=== PATIENT | female | born 1965 | race Caucasian/White ===

== ENCOUNTER → 2021-09-02 09:29 | Outpatient (CLI) | payer SELFPAY, OTHER ==
--- NOTE | 2021-09-02 09:31 | BI_ITS ---
MAMMOGRAPHY - BILATERAL SCREENING REASON FOR EXAM: Female, 56 years old. Routine annual screening examination. PERTINENT HISTORY: Aunt with breast cancer. TECHNIQUE: Digital bilateral breast alanna (3D mammographic acquisition) in the CC and MLO projections. 2-D mediolateral oblique (MLO) and craniocaudad (CC) views of both breasts were obtained. CAD: Full Field Digital Mammography with Computer Added Detection was performed. COMPARISON: No comparison mammograms available at this time. If any prior films become available, an addendum to this report can be generated. FINDINGS: Breast Composition: There are scattered areas of fibroglandular density. There is a 2.4 cm x 2.5 cm mass with calcifications in the deep central slightly lateral aspect of the right breast. Correlation with ultrasound is recommended for further evaluation. No other significant abnormalities are identified. BI/SCRN MAMM (CAD)W/ALNANA BILAT IMPRESSION: 2.4 cm x 2.5 cm soft tissue mass with calcifications in the deep central slightly lateral aspect of the right breast. Correlation with ultrasound is recommended. ASSESSMENT CATEGORY: BIRADS Category 0: Incomplete. Need additional imaging evaluation. A letter regarding these results will be sent to the patient by the facility within 30 days. Approximately 10% of breast cancers are not detected by mammography. A normal mammogram should not delay biopsy of a clinically suspicious abnormality. [id number] Electronically Signed: Sudhir Schneider MD at 10:30 EST , Service support ,
--- NOTE | 2021-09-02 10:33 | US_ITS ---
STUDY: ULTRASOUND BREAST - RIGHT REASON FOR EXAM: Female, 56 years old. Abnormal screening mammogram. TECHNIQUE: Axial and longitudinal images of the RIGHT breast were performed with a high resolution ultrasound transducer. # OF IMAGES: 87 COMPARISON: Comparison is made with prior mammogram done earlier in the morning. FINDINGS: RIGHT Breast: The mammographic abnormality corresponds to a 2.7 cm x 2.5 cm x 1.3 cm complex solid and cystic mass at the 8 o''clock position breast 5 cm from nipple. Calcifications are seen within. Biopsy is recommended. US/Breast Limited Unilateral IMPRESSION: 2.7 cm x 2.5 cm x 1.3 cm complex solid and cystic mass at the 8 o''clock position of the breast at 5 cm from the nipple. Biopsy recommended. ASSESSMENT CATEGORY: BIRADS Category 5: Highly Suggestive of Malignancy - Appropriate Action Should Be Taken. A letter regarding these results will be sent to the patient by the facility within 30 days. Electronically Signed: Sudhir Schneider MD at 12:12 EST , Service support ,
== END ==
PROVIDERS: PCP Family Medicine; Referring Provider Obstetrics & Gynecology; Visit Provider Obstetrics & Gynecology
DX: Z12.31 Encounter for screening mammogram for malignant neoplasm of breast (principal); N60.01 Solitary cyst of right breast
CPT/HCPCS: 76642; 77063; 77067

== ENCOUNTER → 2021-09-09 | Outpatient (CLI) | payer OTHER, SELFPAY ==
--- NOTE | 2021-09-08 | BRBX_PTH ---
PATIENT: JASON SALOMON LOC: [facility] U#:[id number] AGE/SX: 56/F ROOM: RE09/09/[address]: Dr. Kurtis Rivera MD : 1965 BED: DIS: 09/09/2021 SPEC #: [id number] RECD: 09/09/21 07:25 STATUS: EMELY JANAE #: [id number] KHUSHBU: 09/08/21 00:[address]: Kurtis Rivera DEPT: SURGICAL PATHOLOGY RECD BY: Jabier Seth ENTERED: 09/09/21 09:25 SP TYPE: BREAST BX OTHR DR: Dr. Kristine Wilkins DO Tissues: Right breast, NOS Procedures: Surgery Specimen Level IV HEADER OPERATION: Ultrasound-guided needle core biopsy, right breast PRE-OP DIAGNOSIS: Abnormal mammogram right breast TISSUE SUBMITTED: Right breast biopsy ISCHEMIC TIME: 1 minute FIXATION TIME: 27.5 hours MICROSCOPIC DIAGNOSIS Right beast, ultrasound-guided needle core biopsy: Fibrocystic changes, adenosis and intraductal hyperplasia without atypia. Negative for malignancy. CONTRERAS 09/10/21 COMMENT Immunohistochemistry ([id number]) supports the above diagnosis. Correlation with clinical, radiologic findins and appropriate follow up are necessary. Case has been reviewed in consultation with Dr. Pace who concurs with the above diagnosis. IDC:AM MICROSCOPIC DESCRIPTION Slides are reviewed. GROSS DESCRIPTION Received in fixative is one container labeled with the patient's name and designated right breast biopsy. The specimen consists of multiple elongated fragments of mcdonald-yellow fibroadipose tissue that in aggregate measure 1 x 0.5 x 0.1 cm. The entire specimen is submitted in one cassette. / CONTRERAS:syd 09/09/2021 TC:5 CPT: 37188
--- NOTE | 2021-09-08 | IMM_PTH ---
PATIENT: JASON SALOMON LOC: [facility] U#:[id number] AGE/SX: 56/F ROOM: RE09/09/[address]: Dr. Kurtis Rivera MD : 1965 BED: DIS: 09/09/2021 SPEC #: [id number] RECD: 09/10/21 12:39 STATUS: EMELY REChuyita #: [id number] KHUSHBU: 09/08/21 00:[address]: Kurtis Rivera DEPT: IMMUNOHISTOCHEMISTRY RECD BY: Cristina Granados ENTERED: 09/10/21 12:40 SP TYPE: IMMUNO OTHR DR: Dr. Kristine Wilkins DO Tissues: Right breast, NOS Procedures: Calponin-1(initial) P40 (add) PHYSICIAN & INSTITUTION [place] [id number] SPECIMEN INFORMATION: Tissue Source: Right breast biopsy Clinical Info: Abnormal mammogram Specimen Number: [id number] CPT code: 89528, 93142 x1 METHODOLOGY: Deparaffinized sections of prefer/formalin-fixed tissue or PAP/DQ stained slides are incubated with monoclonal/polyclonal antibodies/oligonucleotide probes. Localization is made via biotin free immunoperoxidase method. Appropriate controls are performed and reacted as expected. Results on target cell population are indicated in the following table: RESULTS: ANTIBODY / CLONE RESULT P40 (BC28) positive Calponin-1 (GM251B) positive These tests were developed and their performance characteristics determined by [facility]. They may not have been cleared or approved by the U.S. Food and Drug Administration. The FDA has determined that such clearance or approval is not necessary. The above immunohistochemical/dualISH markers are ordered and reviewed by the Pathologist. INTERPRETATION: Right breast, ultrasound guided core biopsy: Negative for malignancy CONTRERAS:jostin 09/12/21
== END | disposition home or self-care (01) ==
PROVIDERS: PCP Family Medicine; Visit Provider Surgery
DX: R92.8 Other abnormal and inconclusive findings on diagnostic imaging of breast (principal)
CPT/HCPCS: 88305; 88341; 88342

== ENCOUNTER 2021-10-13 06:59 | Day surgery (SDC) | payer OTHER, SELFPAY ==
[2021-10-13] VITALS (8 sets, daily range): BP systolic 125–159; BP diastolic 72–91; PULSE 70–77; RESP 16–20; TEMP 36.1–36.7; O2SAT 93–99; BMI 34.0
--- NOTE | 2021-10-13 | BRBX_PTH ---
PATIENT: JASON SALOMON LOC: [facility] U#:[id number] AGE/SX: 56/F ROOM: RE10/13/[address]: Dr. Kurtis Rivera MD : 1965 BED: DIS: 10/13/2021 SPEC #: [id number] RECD: 10/13/21 10:06 STATUS: EMELY JANAE #: [id number] KHUSHBU: 10/13/21 00:[address]: Kurtis Rivera DEPT: SURGICAL PATHOLOGY RECD BY: Yasmine Reyes ENTERED: 10/13/21 10:41 SP TYPE: BREAST BX OTHR DR: MD Dr. Kristine Pedersen DO Tissues: Right breast, NOS Procedures: Surgery Specimen Level V HEADER OPERATION: Right stereotactic wire loc excisional biopsy PRE-OP DIAGNOSIS: Right breast mass TISSUE SUBMITTED: Right breast mass MICROSCOPIC DIAGNOSIS Right breast mass, lumpectomy with needle localization: Florid intraductal hyperplasia without atypia. Fibrocystic changes and adenosis. Focal microcalcifications. Changes consistent with previous biopsy site. Negative for malignancy. SJ:syd 10/16/2021 COMMENT Please make reference to previous specimen ([id number]) right breast, ultrasound-guided needle core biopsy with diagnosis of ?fibrocystic changes, adenosis and intraductal hyperplasia without atypia.? MICROSCOPIC DESCRIPTION Slides are reviewed. GROSS DESCRIPTION Received fresh for intraoperative consultation labeled with the patient's name is a specimen designated right breast mass. The specimen consists of a piece of fibroadipose tissue with needle localization measuring 8 x 4 x 2.5 cm. the specimen is oriented by sutures as follows: short stitch - superior, long stitch - lateral. The specimen is inked as follows: anterior - yellow, posterior - black, superior - blue, inferior - green, medial - red and lateral - orange. Serial sections reveal focal fibrous area close to the tip of needle. No obvious mass is identified. No definite fibrous area or mass is noted close to the medial margin. This information is conveyed to the surgeon intraoperatively. Sections of the rest of the specimen reveal mcdonald-yellow adipose cut surfaces mixed with fibrous areas. The fibrous area is also close to the posterior margin. The fibrous area measures 2 cm in greatest dimension. Adjunct Writing Instructor sections are?submitted in 12 cassettes as follows: 1 - perpendicular superior, inferior and lateral margins, 2??perpendicular medial and anterior margins, 3 - fibrous area with closest posterior margin, 4-10 - fibrous area with adjacent area (fibrous area is submitted in entirety), 11 & 12 - Adjunct Writing Instructor sections from rest of the area. Sections will be submitted after additional fixation. / CONTRERAS:syd 10/14/21 TC:5 CPT: 23921, 95391
--- NOTE | 2021-10-13 06:58 | BI_ITS ---
SURGICAL BREAST SPECIMEN RADIOGRAPH CLINICAL: Document presence of calcifications in biopsy specimen. FINDINGS: Specimen shows presence of calcifications. Pathology is pending and an addendum to the biopsy report will be performed after the final pathologic diagnosis is rendered. Electronically Signed: Darrel Mcguire MD at 13:53 EST Tel , Service support , BI/Breast Biopsy Specimen
[2021-10-13] MEDS: Lactated Ringers 1,000 ML 15 ML IV ×2 (07:36→10:53)
--- NOTE | 2021-10-13 08:48 | HP.PCM_ITS ---
History and Physical Date of Admission: 10/13/21 Date of Service: 09/24/21 MR#:[id number]:[id number]: JASON SALOMON #:[id number]:1965 Provider:Dr. Kurtis Rivera MDAge/Sex: 56/F [facility] Vital Signs 09/24/21 08:44 Height 5 ft Weight: 175 lb 4 oz BMI 34.2 BP 159/84 H Blood Pressure Location Rt brachial Position Sitting Respiration 17 Pulse 73 Pulse Source Monitor Temp 97.6 F L Temp Source Temporal Pulse Oximetry (%) 96 Oxygen Delivery Method room air Intake Visit Reasons: Surgical Consult Chief Complaint: surgical consult Knowledge Management Advisor Required: No Is patient in pain?: No Allergies No Known Allergies Allergy (Verified 09/24/21 09:01) Medications NK 09/08/21 [History Confirmed 09/24/21] Is last menstrual period known: No PFSH Medical History (Updated 09/24/21 @ 08:43 by Wednesday) Abnormal mammogram of right breast Surgical History No history of previous surgery Family History Mother Hypertension Cancer skin cancer Father Hypertension Social History Smoking Status: Never smoker alcohol intake: never substance use type: does not use HPI HPI HPI: JASON SALOMON, is a 56 F who presents to the office today for screening mammographic finding of a 2.4 x 2.5 cm soft tissue mass with associated calcifications given a BI-RADS 0. Reflex ultrasound obtained on 09/02/2021 demonstrated a right?sided 2.7 x 2.5 x 1.3 solid/cystic mass at the 8 o'clock position 5 cm from the nipple. Based on sonographic imaging criteria this was given a BI-RADS 5. Patient underwent ultrasound-guided core needle biopsy and subsequent pass was intraductal hyperplasia without evidence of atypia. This was deemed to be discordant with patient's imaging BI-RADS rating and she is thus asked to present for discussions of possible excisional biopsy. Patient complains of some itchiness about the biopsy site but otherwise denies any other health changes. She presents with her this visit. For convenience of review, the notes from the patient's initial consultation are recapitulated below: Patient states that during her childbearing years she experienced a right-sided breast tenderness that was larger and more palpable than the current issues. She believes she underwent biopsy of this area in or around the year 1996. Unfortunately, she is unclear what the final result was or if there was even a dequate tissue to make a pathologic diagnosis. She recalls that mammograms were obtained periodically and surveillance of this issue but she was always reassured that the area was stable. She believes her last screening mammogram was done in 2018 as part of a mobile screening service, but she was never notified of any suspicious findings thereafter. The study referenced above was done simply for routine screening. She underwent menarche at the age of 11. She has had 8 pregnancies and 8 live births. Breast-feeding was used. Patient has no first-degree relatives with breast cancer but relates a history of 2 paternal aunts (these are sisters) who were both diagnosed with breast cancer. There is mild tenderness with the present finding. There is no nipple discharge associated with this finding. The patient has no history of hormone replacement therapy. Exam Const General: cooperative, healthy appearing, comfortable and no acute distress Chest Other: There is an 8 cm x 8 cm right breast ecchymosis laterally. There is some firmness of the breast tissue representing post procedure hematoma. There is minimal tenderness with palpation. Assessment and Plan Assessment and Plan (1) Abnormal mammogram of right breast: Status: Inactive Comment: This is a 56-year-old female with a BI-RADS 5 breast lesion of the right breast. Held a lengthy discussion regarding her risk of malignancy in approximately 95% based on her imaging rating alone. There would therefore seem to be some discordance with her biopsy pathology representing benign changes. However, the patient does state this breast lesion has been present for almost 20 years. Still, with this discordance I recommended proceeding for wire localization and excisional breast biopsy. The details of the procedure and post procedure expectations were covered. And the patient nor her had any further questions and wished to proceed as recommended. Plan - Dr. Kurtis Rivera MD: ?Excisional biopsy of right breast mass with wire localization at first mutually available timing I have re-examined the patient. There are no clinical changes since date of exam. Neither patient nor her have any questions regarding today's procedure after I reviewed explanation. Stereotactic wire localization was performed in the wire appears to be on the superior border of the right breast mass. We will plan to account for this intake biopsy of more tissue both anterior and deeper. We will proceed for excisional biopsy as planned.
[2021-10-13] MEDS: Bupivacaine Mpf 0.5% 30 ML VIAL (10:28)
--- NOTE | 2021-10-13 10:36 | EX.PCM.DISCH ---
Discharge Instructions Diet Discharge Diet: No restrictions Activity Discharge Activity: May Not Drive (No driving while using narcotic pain medication) May shower in (days): 1 Ice area for (Minutes): 20 Lifting Restrictions: Less than 15 pounds for 2 weeks after surgery Dressing / Incision Call your doctor if your incision/area has: Continuous Slow Oozing, Sudden Increased Bleeding, Increased Pain/ Swelling, Increased Redness, Foul Smelling Discharge and Swelling at the incision site Call your doctor if you observe: Fever of 101 or Higher Suture Line Care: Avoid Pulling/Pushing Cleanse incision/area with: Soap & Water Follow Up Care Please Follow Up With: Kurtis Rivera MD When: 2 weeks Test Results: Test results from this visit will be discussed in further detail at your follow-up appointment, if applicable. Discharge Plan Admission Primary Reason for Your Visit: Excisional breast biopsy (right) Attending Provider: Kurtis Rivera Primary Care Provider: Kristine Wilkins Consulting Providers: Larry Lee Instructions Patient Instructions: Biopsy Surgical Breast Discharge Orders/Prescriptions Prescriptions: New acetaminophen-codeine 300-30 mg tablet 1 tab PO Q6H PRN (Reason: pain) 7 Days Qty: 20 RF: 0 Continued Alcides-Mag 200 mg calcium- 100 mg Tablet,Chewable 2 tab PO DAILY RF: 0 Referrals / Follow Up: Kristine Wilkins DO [Primary Care Provider] - Disposition Disposition (needs filled in before D/C Order can be placed): Home, Self Care
--- NOTE | 2021-10-13 10:45 | PCM.OPRPT ---
Report of Operation Date of Procedure: 10/13/21 Pre-Operative Diagnosis: Highly suspicious breast imaging with discordant pathology, right breast Post-Operative Diagnosis: Same Surgery/Procedure Performed:: 1. Stereotactic wire localization of right breast mass 2. Excisional breast biopsy (right breast) via wire localization Description of Surgical Findings:: ?Firm, fibrotic tissue medially and wound cavity ?Firmer area deep to wire terminus but within specimen. Normal, lobular breast tissue at the deep margin ?Pathology reports no suspicious findings along the margins Surgeon: Kurtis Rivera home school coordinator: Kaitlyn Warren Type of Anesthesia: General/Supplemental Anesthesiologist: Larry Lee Specimen's removed: Right breast mass, margins designated short- superior, long- lateral Estimated Blood Loss (mL): 10 Description of Procedure: Patient presented to the mammography suite where she was positioned on the mammography table and placed into compression. Stereo images were taken of the left breast and the biopsy clip was targeted. A wire placement depth of 57 mm was selected to ensure that we were within the mass. We elected to target the center of the radiographic density rather than the biopsy clip because the biopsy clip appeared to be on the anterior margin just outside of the area of concern. Then the surface of the breast was cleansed with povidone iodine and the needle was guided into position. X-ray views were obtained to confirm our depth adjacent to the clip, then the wire was deployed through the needle and the needle was removed from the breast. The wire was clipped distally to shorten its length and the procedure was terminated. Mammographic views were obtained showing the wire position adjacent the mass area, but approximately 2 cm shallow to the last area of increased radiographic density. Patient was then sent to the preoperative holding area. After appropriate identification in the preoperative holding area, the patient was brought to the operating room. Her preoperative antibiotic was completed prior to this arrival and she was positioned supine on the operating room table. General anesthesia was induced with an LMA airway. A bump was placed under the patient's right shoulder to improve positioning for the operation. The right breast was then prepped and draped in the usual sterile fashion. A formal timeout was conducted to confirm both patient and procedure. Procedure was begun with a radial incision approximately 2.5 cm in length and 1 cm anterior to the wire?based on preoperative planning from patient's post wire placement mammogram views. This was deepened through the dermal layer with electrocautery. Care was then taken to dissect in the soft tissues and bring the wire into this incision without altering its position within the breast tissue deeply. I then circumscribed the area of interest with electrocautery, taking care to obtain a margin of approximately 2 cm anterior to the wire as the wire seem to be positioned at the posterior margin of the mass. I also was careful to obtain a depth of at least 6 cm as this represented the depth of increased density on the preoperative mammogram. Medially, I did note some firmer/fibrotic tissue and try to take a slightly wider margin at this point. Eventually the specimen was amputated and oriented as it came out of the wound cavity with stitches marking the lateral and superior margins designated long and short, respectively. A specimen was then sent for mammography and pathology. Hemostasis was obtained in the wound cavity. Mammography called to state the specimen was intact, however, biopsy clip was not seen. This was not surprising given that it was on the anteriormost aspect of the area in question and not necessarily targeted with our wire placement. The specimen was then sent to pathology who confirmed there is no suspicious tissue along the margins. The wound cavity was irrigated with sterile water and once again inspected for hemostasis. Finding no active oozing, the wound cavity was closed using a running 3-0 Vicryl in a deep dermal location. This was followed by running 4-0 Monocryl in a subcuticular fashion. A total of 10 mL of half percent bupivacaine were infiltrated. The wound was dressed with Dermabond. Patient tolerated the procedure without issue and was awoken from anesthetic without complication. She was taken to PACU for ongoing recovery. Complications None Admit VTE Documentation VTE Present on Admission: Yes VTE Mechan Device Prophylaxis: SCD's
== END 2021-10-13 13:00 | disposition home or self-care (01) ==
LOC: SDC 07:02 → AC 07:03
PROVIDERS: PCP Family Medicine; Referring Provider Surgery; Visit Provider Surgery
PROC: (CPT 19083; principal; 2021-10-13 08:15)
DX: N60.21 Fibroadenosis of right breast (principal); D24.1 Benign neoplasm of right breast; N62 Hypertrophy of breast; Z20.822 Contact with and (suspected) exposure to COVID-19
CPT/HCPCS: 00400; 19125; 19281; 76098; 87426; 88305; 88307; J7120; J2405